=== PATIENT | female | born 1940 | race Caucasian/White ===

== ENCOUNTER 2019-09-05 17:48 | Inpatient (IN) ==
[2019-09-05] MEDS ORDERED: Naloxone 0.4 MG/ML INJ IVP PRN (21:40)
[2019-09-05] MEDS ORDERED: Ondansetron 4 MG/2 ML VIAL IVP PRN (21:40)
[2019-09-05] MEDS ORDERED: Sodium Bicarbonate 150 MEQ in D5% in Water 1,000 ML IVC SCH (22:00)
[2019-09-05] MEDS ORDERED: 0.9 % Sodium Chloride 1,000 ML IVC ONE (22:08)
[2019-09-05 22:32] LABS: Blood Urea Nitrogen > 130 mg/dL (8-23); Calcium 7.6 mg/dL (8.6-10.3); Carbon Dioxide 6 mEq/L (23-29); Chloride 120 mEq/L (98-107); Glucose 148 mg/dL (70-105); Potassium 5.1 mEq/L (3.5-5.1); Sodium 138 mEq/L (136-145); eGFR For African Americans 7 (> 60); eGFR For Non-African Americans 6 (> 60)
[2019-09-05 23:26] LABS: VBG HCO3 8 mEq/L (21-27); VBG PCO2 30 mmHg (41-51); VBG PH 7.02 pH Units (7.32-7.42); VBG PO2 172 mmHg (25-50)
[2019-09-05] MEDS: 0.9 % Sodium Chloride 1,000 ML IVC SCH (23:50)
[2019-09-06 04:42] LABS: Basophils % 0.2 %; Eosinophils % 0.2 %; Hematocrit 27.6 % (35.3-44.9); Hemoglobin 8.4 g/dL (11.5-15.4); Immature Granulocytes % 0.6 % (0-4); Lymphocytes # 1.3 K/mcL (0.6-4.6); Lymphocytes % 7.5 %; Mean Corpuscular HGB Conc 30.4 g/dL (31.6-35.5); Mean Corpuscular Hemoglobin 30.9 pg (28.0-33.3); Mean Corpuscular Volume 101.5 fL (83.0-100.0); Mean Platelet Volume 10.6 fL (9.4-12.4); Monocytes # 1.1 K/mcL (0.0-1.3); Monocytes % 6.5 %; Neutrophils # 14.7 K/mcL (1.6-8.9); Nucleated Red Blood Cells 0.2 /100 WBC (0); Platelet Count 134 K/mcL (140-400); Red Blood Count 2.72 M/mcL (3.82-4.97); Red Cell Distribution Width 17.2 % (11.5-14.5); White Blood Count 17.3 K/mcL (4.3-11.1)
[2019-09-06 05:24] LABS: Alanine Aminotransferase 10 Units/L (7-52); Albumin 2.5 g/dL (3.5-5.7); Albumin/Globulin Ratio 0.7 (1.1-2.2); Alkaline Phosphatase 157 Units/L (34-104); Aspartate Amino Transferase 15 Units/L (13-39); Bilirubin,Total 0.3 mg/dL (0.3-1.0); Blood Urea Nitrogen > 130 mg/dL (8-23); Calcium 7.4 mg/dL (8.6-10.3); Carbon Dioxide 6 mEq/L (23-29); Chloride 116 mEq/L (98-107); Globulin 3.4 g/dL (2.4-3.5); Glucose 213 mg/dL (70-105); Magnesium 1.6 mg/dL (1.6-2.6); Potassium 4.8 mEq/L (3.5-5.1); Sodium 139 mEq/L (136-145); Total Protein 5.9 g/dL (6.4-8.9); eGFR For African Americans 7 (> 60); eGFR For Non-African Americans 6 (> 60)
[2019-09-06] MEDS: Piperacillin/Tazobactam 3.375 GM in 0.9 % Sodium Chloride Mini Bag 100 ML IVPB SCH ×2 (06:26→17:31)
[2019-09-06] MEDS: *HR* Heparin 5,000 UNIT/ML VIAL SQ SCH ×3 (06:26→20:27)
[2019-09-06] MEDS ORDERED: Dextrose Gel 15 GM/37.5 ML TUBE PO PRN ×2 (07:12)
[2019-09-06] MEDS ORDERED: D5% in Water 1,000 ML IVC PRN (07:12)
[2019-09-06] MEDS ORDERED: *HR* Dextrose 50 % in Water (Syg) 50 ML SYRINGE IVP PRN (07:12)
[2019-09-06] MEDS ORDERED: Insulin LISPRO 300 UNITS/3 ML VIAL SQ SCH (08:00)
[2019-09-06] MEDS: Insulin LISPRO 300 UNITS/3 ML VIAL SQ SCH ×3 (09:06→16:51)
[2019-09-06] MEDS: 0.9 % Sodium Chloride 1,000 ML IVC SCH (09:06)
[2019-09-06] MEDS: Sodium Bicarbonate 150 MEQ in D5% in Water 1,000 ML IVC SCH ×2 (10:29→20:26)
[2019-09-06] MEDS ORDERED: Vancomycin 500 MG in 0.9 % Sodium Chloride Mini Bag 100 ML IVPB ONE (10:42)
[2019-09-06 15:58] LABS: WBC,Urine Present per hpf (0-3)
[2019-09-06 15:59] LABS: RBC,Urine Present per hpf (0-3); Squamous Epithelial Cell,Urine Present per lpf (None-Few)
[2019-09-06 16:00] LABS: Amorphous Sediment,Urine Present per hpf (Few); Bacteria,Urine Present per hpf (None-Few)
[2019-09-06 16:07] LABS: Complement C3 96 mg/dL (87-200)
[2019-09-06 16:39] LABS: Uric Acid 10.1 mg/dL (2.3-7.6)
[2019-09-06 17:51] LABS: Blood Urea Nitrogen > 130 mg/dL (8-23); Calcium 7.2 mg/dL (8.6-10.3); Carbon Dioxide 10 mEq/L (23-29); Chloride 119 mEq/L (98-107); Glucose 143 mg/dL (70-105); Potassium 5.2 mEq/L (3.5-5.1); Sodium 141 mEq/L (136-145); eGFR For African Americans 8 (> 60); eGFR For Non-African Americans 6 (> 60)
[2019-09-06 17:52] LABS: Creatinine,Urine 26 mg/dL; Microalbumin,Urine > 1350 mg/L; Protein/Creatinine Ratio,Urine 35.04 mg/mg (0.00-0.20); Sodium, Urine 92.8 mEq/L
[2019-09-06 20:50] LABS: Blood Urea Nitrogen > 130 mg/dL (8-23); Calcium 7.1 mg/dL (8.6-10.3); Carbon Dioxide 10 mEq/L (23-29); Chloride 115 mEq/L (98-107); Glucose 190 mg/dL (70-105); Potassium 4.4 mEq/L (3.5-5.1); Sodium 138 mEq/L (136-145); eGFR For African Americans 8 (> 60); eGFR For Non-African Americans 6 (> 60)
[2019-09-07] MEDS: Sodium Bicarbonate 150 MEQ in D5% in Water 1,000 ML IVC SCH ×2 (05:36→14:57)
[2019-09-07] MEDS: *HR* Heparin 5,000 UNIT/ML VIAL SQ SCH ×3 (05:37→21:50)
[2019-09-07 06:01] LABS: Hematocrit 26.1 % (35.3-44.9); Hemoglobin 8.4 g/dL (11.5-15.4); Mean Corpuscular HGB Conc 32.2 g/dL (31.6-35.5); Mean Corpuscular Hemoglobin 30.9 pg (28.0-33.3); Mean Platelet Volume 10.8 fL (9.4-12.4); Nucleated Red Blood Cells 0.2 /100 WBC (0); Platelet Count 122 K/mcL (140-400); Red Blood Count 2.72 M/mcL (3.82-4.97); Red Cell Distribution Width 16.8 % (11.5-14.5); White Blood Count 11.7 K/mcL (4.3-11.1)
[2019-09-07 06:08] LABS: Albumin 2.3 g/dL (3.5-5.7); Albumin/Globulin Ratio 0.7 (1.1-2.2); Bilirubin,Total 0.4 mg/dL (0.3-1.0); Calcium 6.8 mg/dL (8.6-10.3); Globulin 3.4 g/dL (2.4-3.5); Potassium 4.1 mEq/L (3.5-5.1); Total Protein 5.7 g/dL (6.4-8.9)
[2019-09-07 06:25] LABS: Lymphocytes # 1.9 K/mcL (0.6-4.6); Monocytes # 0.9 K/mcL (0.0-1.3); Neutrophils # 8.9 K/mcL (1.6-8.9); Platelet Estimate Normal (Normal)
[2019-09-07] MEDS: Piperacillin/Tazobactam 3.375 GM in 0.9 % Sodium Chloride Mini Bag 100 ML IVPB SCH ×2 (06:26→17:30)
[2019-09-07] MEDS: Insulin LISPRO 300 UNITS/3 ML VIAL SQ SCH ×3 (08:06→16:36)
[2019-09-07] MEDS ORDERED: Aminoglycoside Consult 1 EACH MC ONE (08:30)
[2019-09-07] MEDS ORDERED: SODIUM CHLORIDE 0.9% IVPB SCH (12:00)
[2019-09-07] MEDS ORDERED: DAPTOMYCIN IVPB SCH (12:00)
[2019-09-07] MEDS: Gentamicin Oint 15 GM TUBE TP SCH (16:36)
[2019-09-08] MEDS: Sodium Bicarbonate 150 MEQ in D5% in Water 1,000 ML IVC SCH ×3 (00:31→13:05)
[2019-09-08 05:23] LABS: Basophils % 0.3 %; Eosinophils # 0.1 K/mcL (0.0-0.6); Eosinophils % 0.8 %; Hematocrit 27.4 % (35.3-44.9); Immature Granulocytes % 0.7 % (0-4); Lymphocytes # 2.1 K/mcL (0.6-4.6); Lymphocytes % 21.6 %; Mean Corpuscular HGB Conc 32.1 g/dL (31.6-35.5); Mean Corpuscular Hemoglobin 30.8 pg (28.0-33.3); Mean Corpuscular Volume 95.8 fL (83.0-100.0); Mean Platelet Volume 11.1 fL (9.4-12.4); Monocytes # 0.9 K/mcL (0.0-1.3); Neutrophils # 6.5 K/mcL (1.6-8.9); Nucleated Red Blood Cells 0.2 /100 WBC (0); Platelet Count 128 K/mcL (140-400); Red Blood Count 2.86 M/mcL (3.82-4.97); Segmented Neutrophils % 67.6 %; White Blood Count 9.6 K/mcL (4.3-11.1)
[2019-09-08 05:34] LABS: Albumin 2.3 g/dL (3.5-5.7); Albumin/Globulin Ratio 0.7 (1.1-2.2); Bilirubin,Total 0.5 mg/dL (0.3-1.0); Calcium 6.6 mg/dL (8.6-10.3); Globulin 3.5 g/dL (2.4-3.5); Potassium 3.7 mEq/L (3.5-5.1); Total Protein 5.8 g/dL (6.4-8.9)
[2019-09-08 05:37] LABS: Hemoglobin 8.8 g/dL (11.5-15.4)
[2019-09-08] MEDS: Piperacillin/Tazobactam 3.375 GM in 0.9 % Sodium Chloride Mini Bag 100 ML IVPB SCH ×2 (05:41→17:07)
[2019-09-08] MEDS: *HR* Heparin 5,000 UNIT/ML VIAL SQ SCH ×3 (05:42→21:30)
[2019-09-08] MEDS: DAPTOmycin 500 MG in 0.9 % Sodium Chloride 100 ML IVPB SCH (06:37)
[2019-09-08] MEDS: Insulin LISPRO 300 UNITS/3 ML VIAL SQ SCH ×3 (08:30→17:07)
[2019-09-08] MEDS: Gentamicin Oint 15 GM TUBE TP SCH (10:23)
[2019-09-08 22:40] LABS: Hematocrit RBC Folate 27.6 %
[2019-09-09 02:43] LABS: Basophils # 0.1 K/mcL (0.0-0.2); Basophils % 0.4 %; Eosinophils # 0.1 K/mcL (0.0-0.6); Eosinophils % 0.8 %; Hematocrit 29.1 % (35.3-44.9); Hemoglobin 9.9 g/dL (11.5-15.4); Immature Granulocytes % 1.7 % (0-4); Lymphocytes # 2.6 K/mcL (0.6-4.6); Lymphocytes % 19.4 %; Mean Corpuscular Hemoglobin 31.2 pg (28.0-33.3); Mean Corpuscular Volume 91.8 fL (83.0-100.0); Mean Platelet Volume 11.1 fL (9.4-12.4); Monocytes # 1.1 K/mcL (0.0-1.3); Neutrophils # 9.3 K/mcL (1.6-8.9); Nucleated Red Blood Cells 0.2 /100 WBC (0); Platelet Count 135 K/mcL (140-400); Red Blood Count 3.17 M/mcL (3.82-4.97); Red Cell Distribution Width 16.3 % (11.5-14.5); Segmented Neutrophils % 69.7 %; White Blood Count 13.3 K/mcL (4.3-11.1)
[2019-09-09 02:54] LABS: Albumin 2.3 g/dL (3.5-5.7); Albumin/Globulin Ratio 0.6 (1.1-2.2); Bilirubin,Total 0.6 mg/dL (0.3-1.0); Calcium 6.4 mg/dL (8.6-10.3); Globulin 3.8 g/dL (2.4-3.5); Potassium 3.7 mEq/L (3.5-5.1); Total Protein 6.1 g/dL (6.4-8.9)
[2019-09-09] MEDS: Sodium Bicarbonate 150 MEQ in D5% in Water 1,000 ML IVC SCH (03:20)
[2019-09-09] MEDS: *HR* Heparin 5,000 UNIT/ML VIAL SQ SCH ×3 (07:03→23:10)
[2019-09-09] MEDS: Piperacillin/Tazobactam 3.375 GM in 0.9 % Sodium Chloride Mini Bag 100 ML IVPB SCH ×2 (07:04→17:13)
[2019-09-09] MEDS: Gentamicin Oint 15 GM TUBE TP SCH (09:23)
[2019-09-09] MEDS: Insulin LISPRO 300 UNITS/3 ML VIAL SQ SCH ×3 (09:23→17:12)
[2019-09-10 06:07] LABS: Basophils % 0.2 %; Eosinophils # 0.1 K/mcL (0.0-0.6); Eosinophils % 0.6 %; Hematocrit 28.6 % (35.3-44.9); Hemoglobin 9.5 g/dL (11.5-15.4); Immature Granulocytes % 0.7 % (0-4); Lymphocytes # 2.2 K/mcL (0.6-4.6); Lymphocytes % 18.4 %; Mean Corpuscular HGB Conc 33.2 g/dL (31.6-35.5); Mean Corpuscular Hemoglobin 30.7 pg (28.0-33.3); Mean Corpuscular Volume 92.6 fL (83.0-100.0); Mean Platelet Volume 10.7 fL (9.4-12.4); Monocytes # 0.9 K/mcL (0.0-1.3); Monocytes % 7.2 %; Neutrophils # 8.9 K/mcL (1.6-8.9); Platelet Count 128 K/mcL (140-400); Red Blood Count 3.09 M/mcL (3.82-4.97); Red Cell Distribution Width 16.2 % (11.5-14.5); Segmented Neutrophils % 72.9 %; White Blood Count 12.1 K/mcL (4.3-11.1)
[2019-09-10 06:10] LABS: INR 1.3; Prothrombin Time 15.1 Seconds (9.4-12.1)
[2019-09-10] MEDS: Piperacillin/Tazobactam 3.375 GM in 0.9 % Sodium Chloride Mini Bag 100 ML IVPB SCH (06:43)
[2019-09-10] MEDS: *HR* Heparin 5,000 UNIT/ML VIAL SQ SCH ×3 (06:44→21:12)
[2019-09-10 06:45] LABS: Albumin 2.3 g/dL (3.5-5.7); Calcium 6.2 mg/dL (8.6-10.3); Phosphorous 6.1 mg/dL (2.7-4.5); Potassium 3.4 mEq/L (3.5-5.1)
[2019-09-10] MEDS ORDERED: 0.9 % Sodium Chloride 1,000 ML ONE (07:24)
[2019-09-10 07:48] LABS: Hepatitis B Surface Antibody < 3.10 mIU/mL
[2019-09-10 08:00] LABS: Hepatitis B Surface Antigen Nonreactive (Nonreactive)
[2019-09-10] MEDS: Gentamicin Oint 15 GM TUBE TP SCH (08:30)
[2019-09-10 09:50] LABS: ANA IgG by ELISA DETECTED (None Detected)
[2019-09-10] MEDS: DAPTOmycin 500 MG in 0.9 % Sodium Chloride 100 ML IVPB SCH (09:51)
[2019-09-10] MEDS: Insulin LISPRO 300 UNITS/3 ML VIAL SQ SCH ×3 (09:51→17:27)
[2019-09-10] MEDS ORDERED: 0.9 % Sodium Chloride 250 ML IVC PRN (12:58)
[2019-09-10] MEDS ORDERED: *HR* Heparin 10,000 UNIT/10 ML VIAL IV PRN (13:09)
[2019-09-10] MEDS ORDERED: 0.9 % Sodium Chloride 1,000 ML PRIME SCH (13:15)
[2019-09-10] MEDS ORDERED: *HR* Heparin 5,000 UNIT/ML VIAL ONE (14:55)
[2019-09-10] MEDS: cefTRIAXone 2,000 MG in 0.9 % Sodium Chloride Mini Bag 100 ML IVPB SCH (18:28)
[2019-09-11 02:34] LABS: ANA HEp-2 IgG IFA DETECTED (<1:80); Anti Nuclear Ab Pattern SPECKLED
[2019-09-11 04:00] LABS: Basophils % 0.2 %; Eosinophils # 0.1 K/mcL (0.0-0.6); Eosinophils % 0.4 %; Hematocrit 29.8 % (35.3-44.9); Hemoglobin 9.6 g/dL (11.5-15.4); Immature Granulocytes % 0.9 % (0-4); Lymphocytes # 2.3 K/mcL (0.6-4.6); Lymphocytes % 16.5 %; Mean Corpuscular HGB Conc 32.2 g/dL (31.6-35.5); Mean Corpuscular Hemoglobin 30.4 pg (28.0-33.3); Mean Corpuscular Volume 94.3 fL (83.0-100.0); Mean Platelet Volume 10.5 fL (9.4-12.4); Monocytes # 0.8 K/mcL (0.0-1.3); Neutrophils # 10.6 K/mcL (1.6-8.9); Platelet Count 143 K/mcL (140-400); Red Blood Count 3.16 M/mcL (3.82-4.97); Red Cell Distribution Width 16.2 % (11.5-14.5); White Blood Count 13.9 K/mcL (4.3-11.1)
[2019-09-11 04:16] LABS: Calcium 6.8 mg/dL (8.6-10.3); Potassium 3.6 mEq/L (3.5-5.1)
[2019-09-11] MEDS: *HR* Heparin 5,000 UNIT/ML VIAL SQ SCH ×3 (06:27→20:57)
[2019-09-11] MEDS ORDERED: 0.9 % Sodium Chloride 250 ML IVC PRN (08:07)
[2019-09-11] MEDS ORDERED: *HR* Heparin 10,000 UNIT/10 ML VIAL IV PRN (08:07)
[2019-09-11] MEDS: Insulin LISPRO 300 UNITS/3 ML VIAL SQ SCH ×3 (08:51→16:47)
[2019-09-11] MEDS: Gentamicin Oint 15 GM TUBE TP SCH (08:52)
[2019-09-11] MEDS: cefTRIAXone 2,000 MG in 0.9 % Sodium Chloride Mini Bag 100 ML IVPB SCH (08:53)
[2019-09-11 14:18] LABS: Hematocrit 30.8 % (35.3-44.9); Hemoglobin 9.8 g/dL (11.5-15.4)
[2019-09-11 16:22] LABS: Bilirubin,Urine Negative (Negative); Blood,Urine Large (Negative); Clarity,Urine Cloudy (Clear); Color,Urine Red (Yellow); Glucose,Urine (UA) 100 mg/dL (Normal); Ketones,Urine Trace mg/dL (Negative); Leukocyte Esterase,Urine Large (Negative); Nitrite,Urine Negative (Negative); Protein,Urine >=300 mg/dL (Neg-Trace); Specific Gravity,Urine 1.019 (1.010-1.025); Urobilinogen,Urine Normal (Normal)
[2019-09-12 04:54] LABS: Basophils % 0.3 %; Eosinophils # 0.1 K/mcL (0.0-0.6); Eosinophils % 0.6 %; Hematocrit 29.1 % (35.3-44.9); Hemoglobin 9.5 g/dL (11.5-15.4); Immature Granulocytes % 0.7 % (0-4); Lymphocytes # 2.4 K/mcL (0.6-4.6); Lymphocytes % 22.6 %; Mean Corpuscular HGB Conc 32.6 g/dL (31.6-35.5); Mean Corpuscular Volume 95.1 fL (83.0-100.0); Mean Platelet Volume 10.7 fL (9.4-12.4); Monocytes # 0.7 K/mcL (0.0-1.3); Monocytes % 6.6 %; Neutrophils # 7.2 K/mcL (1.6-8.9); Nucleated Red Blood Cells 0.2 /100 WBC (0); Platelet Count 146 K/mcL (140-400); Red Blood Count 3.06 M/mcL (3.82-4.97); Red Cell Distribution Width 16.1 % (11.5-14.5); Segmented Neutrophils % 69.2 %; White Blood Count 10.4 K/mcL (4.3-11.1)
[2019-09-12 05:09] LABS: Calcium 7.3 mg/dL (8.6-10.3); Potassium 3.6 mEq/L (3.5-5.1)
[2019-09-12] MEDS: *HR* Heparin 5,000 UNIT/ML VIAL SQ SCH ×3 (05:23→19:49)
[2019-09-12] MEDS: DAPTOmycin 500 MG in 0.9 % Sodium Chloride 100 ML IVPB SCH (06:28)
[2019-09-12] MEDS ORDERED: 0.9 % Sodium Chloride 250 ML IVC PRN (07:50)
[2019-09-12] MEDS ORDERED: *HR* Heparin 10,000 UNIT/10 ML VIAL IV PRN (07:50)
[2019-09-12] MEDS: Insulin LISPRO 300 UNITS/3 ML VIAL SQ SCH ×5 (08:48→18:06)
[2019-09-12] MEDS: cefTRIAXone 2,000 MG in 0.9 % Sodium Chloride Mini Bag 100 ML IVPB SCH (08:49)
[2019-09-12] MEDS: Gentamicin Oint 15 GM TUBE TP SCH (08:49)
[2019-09-12] MEDS ORDERED: Heparin 1,000 UNITS/500 mL 500 ML ONE (09:20)
[2019-09-12] MEDS ORDERED: *HR* FentaNYL (PF) 100 MCG/2 ML VIAL IVP ONE (09:38)
[2019-09-12] MEDS ORDERED: 0.9 % Sodium Chloride 500 ML ONE (09:44)
[2019-09-12] MEDS ORDERED: *HR* Heparin 5,000 UNIT/ML VIAL ONE (09:48)
[2019-09-12 22:55] LABS: ABG Base Excess 5 mEq/L (-2 to 3); ABG HCO3 30 mEq/L (21-27); ABG Oxygen Saturation 98 % (95-98); ABG PCO2 47 mmHg (35-45); ABG PH 7.41 pH Units (7.32-7.45); ABG PO2 100 mmHg (85-104); ABG TCO2 31 mEq/L (20-26)
[2019-09-13 02:49] LABS: Basophils % 0.4 %; Eosinophils # 0.2 K/mcL (0.0-0.6); Eosinophils % 1.4 %; Hematocrit 28.5 % (35.3-44.9); Immature Granulocytes % 1.1 % (0-4); Immature Platelets 2.6 % (1.1-6.1); Lymphocytes # 2.4 K/mcL (0.6-4.6); Lymphocytes % 22.8 %; Mean Corpuscular HGB Conc 31.6 g/dL (31.6-35.5); Mean Corpuscular Hemoglobin 31.4 pg (28.0-33.3); Mean Corpuscular Volume 99.3 fL (83.0-100.0); Mean Platelet Volume 10.3 fL (9.4-12.4); Monocytes # 0.8 K/mcL (0.0-1.3); Monocytes % 7.7 %; Platelet Count 156 K/mcL (140-400); Red Blood Count 2.87 M/mcL (3.82-4.97); Segmented Neutrophils % 66.6 %; White Blood Count 10.5 K/mcL (4.3-11.1)
[2019-09-13 03:12] LABS: Albumin 2.4 g/dL (3.5-5.7); Albumin/Globulin Ratio 0.6 (1.1-2.2); Bilirubin,Total 0.4 mg/dL (0.3-1.0); Calcium 7.5 mg/dL (8.6-10.3); Globulin 3.9 g/dL (2.4-3.5); Potassium 3.6 mEq/L (3.5-5.1); Total Protein 6.3 g/dL (6.4-8.9)
[2019-09-13] MEDS: *HR* Heparin 5,000 UNIT/ML VIAL SQ SCH ×3 (05:43→15:39)
[2019-09-13] MEDS ORDERED: *HR* LORazepam 2 MG/ML VIAL IVP ONE (05:51)
[2019-09-13 06:49] LABS: Thyroid Stimulating Hormone 6.142 mcIU/mL (0.340-5.600)
[2019-09-13] MEDS: cefTRIAXone 2,000 MG in 0.9 % Sodium Chloride Mini Bag 100 ML IVPB SCH (08:59)
[2019-09-13] MEDS: Gentamicin Oint 15 GM TUBE TP SCH (08:59)
[2019-09-13] MEDS: Insulin LISPRO 300 UNITS/3 ML VIAL SQ SCH ×3 (09:01→15:22)
[2019-09-14] MEDS: *HR* Heparin 5,000 UNIT/ML VIAL SQ SCH ×4 (00:34→22:58)
[2019-09-14] MEDS: DAPTOmycin 500 MG in 0.9 % Sodium Chloride 100 ML IVPB SCH (07:29)
[2019-09-14 07:59] LABS: Hematocrit 27.9 % (35.3-44.9); Hemoglobin 8.6 g/dL (11.5-15.4); Mean Corpuscular HGB Conc 30.8 g/dL (31.6-35.5); Mean Corpuscular Hemoglobin 30.7 pg (28.0-33.3); Mean Corpuscular Volume 99.6 fL (83.0-100.0); Mean Platelet Volume 10.5 fL (9.4-12.4); Platelet Count 157 K/mcL (140-400); Red Cell Distribution Width 15.8 % (11.5-14.5); White Blood Count 8.9 K/mcL (4.3-11.1)
[2019-09-14] MEDS: Insulin LISPRO 300 UNITS/3 ML VIAL SQ SCH ×3 (08:13→17:08)
[2019-09-14] MEDS: Gentamicin Oint 15 GM TUBE TP SCH (08:19)
[2019-09-14] MEDS: cefTRIAXone 2,000 MG in 0.9 % Sodium Chloride Mini Bag 100 ML IVPB SCH (08:19)
[2019-09-14] MEDS ORDERED: 0.9 % Sodium Chloride 250 ML IVC PRN (08:21)
[2019-09-14 09:15] LABS: Calcium 7.3 mg/dL (8.6-10.3); Potassium 3.8 mEq/L (3.5-5.1)
[2019-09-15] MEDS: *HR* Heparin 5,000 UNIT/ML VIAL SQ SCH ×3 (05:54→22:12)
[2019-09-15 07:01] LABS: Hematocrit 27.1 % (35.3-44.9); Hemoglobin 8.1 g/dL (11.5-15.4); Mean Corpuscular HGB Conc 29.9 g/dL (31.6-35.5); Mean Corpuscular Volume 103.8 fL (83.0-100.0); Mean Platelet Volume 10.7 fL (9.4-12.4); Platelet Count 139 K/mcL (140-400); Red Blood Count 2.61 M/mcL (3.82-4.97); Red Cell Distribution Width 15.5 % (11.5-14.5)
[2019-09-15 07:22] LABS: Calcium 7.3 mg/dL (8.6-10.3); Potassium 3.7 mEq/L (3.5-5.1)
[2019-09-15] MEDS: Insulin LISPRO 300 UNITS/3 ML VIAL SQ SCH ×4 (09:08→17:29)
[2019-09-15] MEDS: cefTRIAXone 2,000 MG in 0.9 % Sodium Chloride Mini Bag 100 ML IVPB SCH (09:10)
[2019-09-15] MEDS: Gentamicin Oint 15 GM TUBE TP SCH (09:11)
[2019-09-15] MEDS ORDERED: 0.9 % Sodium Chloride 250 ML IVC PRN (11:32)
[2019-09-16] MEDS: *HR* Heparin 5,000 UNIT/ML VIAL SQ SCH ×2 (05:34→14:21)
[2019-09-16] MEDS: Insulin LISPRO 300 UNITS/3 ML VIAL SQ SCH ×3 (07:45→16:33)
[2019-09-16] MEDS: DAPTOmycin 500 MG in 0.9 % Sodium Chloride 100 ML IVPB SCH (08:01)
[2019-09-16] MEDS: Gentamicin Oint 15 GM TUBE TP SCH (08:04)
[2019-09-16 08:09] LABS: Calcium 7.4 mg/dL (8.6-10.3); Potassium 3.9 mEq/L (3.5-5.1)
[2019-09-16] MEDS: cefTRIAXone 2,000 MG in 0.9 % Sodium Chloride Mini Bag 100 ML IVPB SCH (10:00)
[2019-09-16 16:07] VITALS: BP 116/63
== END 2019-09-16 16:50 | DRG 871 ==
LOC: 2ANU → SUATTDRO 19:36 → 2ANU 09-07 20:06
PROVIDERS: ADMIT Student in an Organized Health Care Education/Training Program; ATTEND Internal Medicine
PROC: IRPERMA (2019-09-12 09:15)

== ENCOUNTER 2019-11-12 18:53 | Inpatient (IN) ==
[2019-11-13] MEDS ORDERED: Naloxone 0.4 MG/ML INJ IVP PRN (00:15)
[2019-11-13] MEDS ORDERED: D5% in Water 1,000 ML IVC PRN (00:53)
[2019-11-13] MEDS ORDERED: Dextrose Gel 15 GM/37.5 ML TUBE PO PRN ×2 (00:53)
[2019-11-13] MEDS ORDERED: Azithromycin 500 MG in D5% in Water 250 ML IVPB SCH (01:00)
[2019-11-13] MEDS ORDERED: 0.9 % Sodium Chloride 1,000 ML IVC ONE (01:03)
[2019-11-13] MEDS ORDERED: *HR* Heparin 5,000 UNIT/ML VIAL IVP ONE (01:58)
[2019-11-13] MEDS ORDERED: *HR* Heparin 5,000 UNIT/ML VIAL IVP PRN ×2 (01:58)
[2019-11-13] MEDS ORDERED: Heparin 25,000 UNIT/250 ML D5W 25,000 UNIT/250 ML IV.SOLN IVC SCH (02:00)
[2019-11-13] MEDS: Piperacillin/Tazobactam 3.375 GM in 0.9 % Sodium Chloride Mini Bag 100 ML IVPB SCH ×2 (03:00→14:30)
[2019-11-13 04:12] LABS: Heparin anti-factor XA UFH < 0.04 IU/mL (0.30-0.70)
[2019-11-13 04:13] LABS: INR 1.5; Prothrombin Time 17.5 Seconds (9.4-12.1)
[2019-11-13 05:12] LABS: Hematocrit 34.8 % (35.3-44.9); Immature Platelets 5.3 % (1.1-6.1); Mean Corpuscular HGB Conc 31.6 g/dL (31.6-35.5); Mean Corpuscular Hemoglobin 32.7 pg (28.0-33.3); Mean Corpuscular Volume 103.6 fL (83.0-100.0); Red Blood Count 3.36 M/mcL (3.82-4.97); White Blood Count 19.4 K/mcL (4.3-11.1)
[2019-11-13 06:29] LABS: Calcium 7.7 mg/dL (8.6-10.3); Potassium 3.1 mEq/L (3.5-5.1)
[2019-11-13] MEDS ORDERED: Piperacillin/Tazobactam 3.375 GM in 0.9 % Sodium Chloride Mini Bag 100 ML IVPB SCH (08:00)
[2019-11-13] MEDS ORDERED: 0.9 % Sodium Chloride 1,000 ML IVC SCH (08:00)
[2019-11-13] MEDS: Insulin LISPRO 300 UNITS/3 ML VIAL SQ SCH ×3 (08:24→16:36)
[2019-11-13 09:09] LABS: Hepatitis B Surface Antibody < 3.10 mIU/mL
[2019-11-13 09:20] LABS: Hepatitis B Surface Antigen Nonreactive (Nonreactive)
[2019-11-13] MEDS ORDERED: *HR* Heparin 10,000 UNIT/10 ML VIAL IV PRN ×2 (10:34)
[2019-11-13] MEDS ORDERED: 0.9 % Sodium Chloride 250 ML IVC PRN (10:34)
[2019-11-13] MEDS ORDERED: 0.9 % Sodium Chloride 1,000 ML PRIME SCH (10:45)
[2019-11-13] MEDS: Silvasorb 44.4 ML TUBE TP SCH (16:36)
[2019-11-13] MEDS: *HR* Heparin 5,000 UNIT/ML VIAL SQ SCH (18:02)
[2019-11-13] MEDS: Insulin DETEMIR 100 UNIT/ML X5UNITS SQ SCH (20:32)
[2019-11-13] MEDS ORDERED: Insulin LISPRO 300 UNITS/3 ML VIAL SQ SCH (21:00)
[2019-11-14] MEDS: Piperacillin/Tazobactam 3.375 GM in 0.9 % Sodium Chloride Mini Bag 100 ML IVPB SCH ×2 (02:20→15:28)
[2019-11-14 05:11] LABS: Eosinophils % 0.5 %; Nucleated Red Blood Cells 0.8 /100 WBC (0)
[2019-11-14 05:13] LABS: Basophils % 0.2 %; Eosinophils # 0.1 K/mcL (0.0-0.6); Hematocrit 36.4 % (35.3-44.9); Hemoglobin 11.6 g/dL (11.5-15.4); Immature Granulocytes % 0.8 % (0-4); Lymphocytes # 2.8 K/mcL (0.6-4.6); Lymphocytes % 21.3 %; Mean Corpuscular HGB Conc 31.9 g/dL (31.6-35.5); Mean Corpuscular Hemoglobin 33.2 pg (28.0-33.3); Mean Corpuscular Volume 104.3 fL (83.0-100.0); Mean Platelet Volume 11.2 fL (9.4-12.4); Monocytes # 0.8 K/mcL (0.0-1.3); Monocytes % 6.3 %; Neutrophils # 9.4 K/mcL (1.6-8.9); Red Blood Count 3.49 M/mcL (3.82-4.97); Red Cell Distribution Width 20.7 % (11.5-14.5); Segmented Neutrophils % 70.9 %; White Blood Count 13.2 K/mcL (4.3-11.1)
[2019-11-14 05:22] LABS: Platelet Count 84 K/mcL (140-400)
[2019-11-14 05:32] LABS: Calcium 7.8 mg/dL (8.6-10.3); Magnesium 1.8 mg/dL (1.6-2.6); Phosphorous 2.1 mg/dL (2.7-4.5); Potassium 3.7 mEq/L (3.5-5.1)
[2019-11-14] MEDS: *HR* Heparin 5,000 UNIT/ML VIAL SQ SCH ×2 (06:08→17:45)
[2019-11-14 06:50] LABS: Bilirubin,Urine Large (Negative); Blood,Urine Large (Negative); Clarity,Urine Turbid (Clear); Color,Urine Red (Yellow); Glucose,Urine (UA) Normal (Normal); Ketones,Urine 15 mg/dL (Negative); Leukocyte Esterase,Urine Large (Negative); Nitrite,Urine Positive (Negative); PH,Urine 6.5 pH Units (5.0-8.0); Protein,Urine >=1000 mg/dL (Neg-Trace); Specific Gravity,Urine 1.024 (1.010-1.025); Urobilinogen,Urine Normal (Normal)
[2019-11-14 06:51] LABS: RBC,Urine Present per hpf (0-3); WBC,Urine Present per hpf (0-3)
[2019-11-14] MEDS: Aspirin Enteric Coated 81 MG Tablet PO SCH (08:12)
[2019-11-14] MEDS: Silvasorb 44.4 ML TUBE TP SCH (08:13)
[2019-11-14] MEDS: Insulin LISPRO 300 UNITS/3 ML VIAL SQ SCH ×3 (08:13→16:30)
[2019-11-14] MEDS ORDERED: Loratadine 10 MG TABLET PO PRN (17:17)
[2019-11-14] MEDS: Calcium Acetate 667 MG CAPSULE PO SCH (21:03)
[2019-11-14] MEDS: Mirtazapine 15 MG TABLET PO SCH (21:03)
[2019-11-15] MEDS: Piperacillin/Tazobactam 3.375 GM in 0.9 % Sodium Chloride Mini Bag 100 ML IVPB SCH ×2 (01:25→15:25)
[2019-11-15 05:32] LABS: Mean Corpuscular Volume 104.1 fL (83.0-100.0); Red Cell Distribution Width 21.2 % (11.5-14.5)
[2019-11-15 05:34] LABS: Hematocrit 40.6 % (35.3-44.9); Hemoglobin 12.7 g/dL (11.5-15.4); Immature Platelets 6.9 % (1.1-6.1); Mean Corpuscular HGB Conc 31.3 g/dL (31.6-35.5); Mean Corpuscular Hemoglobin 32.6 pg (28.0-33.3); Mean Platelet Volume 10.8 fL (9.4-12.4); Red Blood Count 3.9 M/mcL (3.82-4.97); White Blood Count 17.7 K/mcL (4.3-11.1)
[2019-11-15] MEDS: *HR* Heparin 5,000 UNIT/ML VIAL SQ SCH ×2 (05:41→17:24)
[2019-11-15 05:54] LABS: Magnesium 1.9 mg/dL (1.6-2.6); Phosphorous 5.6 mg/dL (2.7-4.5); Potassium 4.5 mEq/L (3.5-5.1)
[2019-11-15 06:08] LABS: Thyroid Stimulating Hormone 11.516 mcIU/mL (0.340-5.600)
[2019-11-15] MEDS ORDERED: *HR* Heparin 10,000 UNIT/10 ML VIAL IV PRN (08:17)
[2019-11-15] MEDS ORDERED: 0.9 % Sodium Chloride 250 ML IVC PRN (08:17)
[2019-11-15] MEDS: Calcium Acetate 667 MG CAPSULE PO SCH ×3 (08:55→20:51)
[2019-11-15] MEDS: Aspirin Enteric Coated 81 MG Tablet PO SCH (08:55)
[2019-11-15] MEDS: Silvasorb 44.4 ML TUBE TP SCH (08:56)
[2019-11-15] MEDS: Vitamin A AND D OINT 42.5 GM Tube TP SCH (08:56)
[2019-11-15] MEDS: Insulin LISPRO 300 UNITS/3 ML VIAL SQ SCH ×3 (08:58→16:20)
[2019-11-15] MEDS ORDERED: Furosemide 40 MG TABLET PO SCH (09:00)
[2019-11-15] MEDS: Insulin DETEMIR 100 UNIT/ML X5UNITS SQ SCH ×2 (09:01→20:51)
[2019-11-15] MEDS ORDERED: Ringers Solution, Lactated 1,000 ML IVC SCH (12:00)
[2019-11-15 13:02] LABS: Adenovirus Not Detected (Not Detect); Bordetella Pertussis Not Detected (Not Detect); Chlamydophila pneumoniae Not Detected (Not Detect); Coronavirus 229E Not Detected (Not Detect); Coronavirus HKU1 Not Detected (Not Detect); Coronavirus NL63 Not Detected (Not Detect); Coronavirus OC43 Not Detected (Not Detect); Human Metapneumovirus Not Detected (Not Detect); Human Rhinovirus/Enterovirus Not Detected (Not Detect); Influenza A Subtype 2009 H1 Not Detected (Not Detect); Influenza B Not Detected (Not Detect); Mycoplasma pneumoniae Not Detected (Not Detect); Parainfluenza Virus 1 Not Detected (Not Detect); Parainfluenza Virus 2 Not Detected (Not Detect); Parainfluenza Virus 3 Not Detected (Not Detect); Parainfluenza Virus 4 Not Detected (Not Detect); Respiratory Syncytial Virus Not Detected (Not Detect)
[2019-11-15] MEDS ORDERED: Aminoglycoside Consult 1 EACH MC ONE (13:05)
[2019-11-15] MEDS: *HR* Dextrose 50 % in Water (Syg) 50 ML SYRINGE IVP PRN (20:39)
[2019-11-15] MEDS: Mirtazapine 15 MG TABLET PO SCH (20:51)
[2019-11-15] MEDS: Lactobacillus 1 EACH CAP.SPRINK PO SCH (20:51)
[2019-11-16] MEDS: Piperacillin/Tazobactam 3.375 GM in 0.9 % Sodium Chloride Mini Bag 100 ML IVPB SCH (02:51)
[2019-11-16 03:16] LABS: Hemoglobin 12.8 g/dL (11.5-15.4); Red Cell Distribution Width 21.1 % (11.5-14.5)
[2019-11-16 03:18] LABS: Hematocrit 40.1 % (35.3-44.9); Immature Platelets 7.8 % (1.1-6.1); Mean Corpuscular HGB Conc 31.9 g/dL (31.6-35.5); Mean Corpuscular Hemoglobin 33.2 pg (28.0-33.3); Mean Corpuscular Volume 103.9 fL (83.0-100.0); Mean Platelet Volume 11.5 fL (9.4-12.4); Red Blood Count 3.86 M/mcL (3.82-4.97); White Blood Count 17.9 K/mcL (4.3-11.1)
[2019-11-16 03:36] LABS: Calcium 7.7 mg/dL (8.6-10.3); Potassium 3.7 mEq/L (3.5-5.1)
[2019-11-16] MEDS: *HR* Heparin 5,000 UNIT/ML VIAL SQ SCH (06:12)
[2019-11-16 07:33] VITALS: BP 100/66
[2019-11-16] MEDS: Silvasorb 44.4 ML TUBE TP SCH (08:25)
[2019-11-16] MEDS: Insulin LISPRO 300 UNITS/3 ML VIAL SQ SCH ×2 (08:25→11:30)
[2019-11-16] MEDS: Vitamin A AND D OINT 42.5 GM Tube TP SCH (08:26)
[2019-11-16] MEDS: Aspirin Enteric Coated 81 MG Tablet PO SCH (08:27)
[2019-11-16] MEDS: Calcium Acetate 667 MG CAPSULE PO SCH (08:27)
[2019-11-16] MEDS: Lactobacillus 1 EACH CAP.SPRINK PO SCH (08:27)
[2019-11-16] MEDS: Insulin DETEMIR 100 UNIT/ML X5UNITS SQ SCH (08:29)
[2019-11-16] MEDS: *HR* Dextrose 50 % in Water (Syg) 50 ML SYRINGE IVP PRN (11:31)
[2019-11-19] MEDS ORDERED: Ergocalciferol (VIT D2) 50,000 UNIT (1.25MG) CAP PO SCH (17:17)
== END 2019-11-16 13:06 | disposition home health service (06) | DRG 193 ==
LOC: 2ANU → SUATTDRO 21:18
PROVIDERS: ADMIT Internal Medicine; ATTEND Pharmacist